=== PATIENT | male | born 2000 | race Two or more races ===

== ENCOUNTER 2024-10-26 10:07 | Emergency (ER) | payer BC, OTHER ==
[~2024-10-26] VITALS: Ht 170.2 cm; Wt 92.3 kg
[2024-10-26] MEDS: ACETAMINOPHEN 500 MG TAB PO ONE (10:43)
[2024-10-26] MEDS: IBUPROFEN 600MG TAB PO ONE (11:19)
[2024-10-26] MEDS ORDERED: PENI500T PO (12:23)
[2024-10-26 12:28] VITALS: BP 129/78; TEMP 99.6; O2SAT 98
[2024-10-26] MEDS ORDERED: CEFD300CAP PO (12:39)
== END 2024-10-26 12:32 | disposition home or self-care (01) ==
LOC: M ED 10:07
DX: J02.0 Streptococcal pharyngitis (principal); Z88.0 Allergy status to penicillin; Z79.2 Long term (current) use of antibiotics